=== PATIENT | male | born 2000 | race African-American/Black ===

== ENCOUNTER 2024-10-19 07:48 | Emergency (ER) | payer OTHER ==
[~2024-10-19] VITALS: Ht 180.3 cm; Wt 91.0 kg
[2024-10-19 07:53] VITALS: PULSE 96; O2SAT 98
[2024-10-19 07:57] VITALS: BP 173/107; RESP 18; TEMP 98.6; O2SAT 99
== END 2024-10-19 08:30 | disposition home or self-care (01) ==
LOC: ER 07:48
DX: R05.9 Cough, unspecified (principal)
CPT/HCPCS: 99281; Z7610